=== PATIENT | female | born 1995 | race Two or more races ===

== ENCOUNTER 2020-06-30 06:29 | Emergency (ER) | payer MEDICAID ==
[~2020-06-30] VITALS: Ht 165.1 cm; Wt 83.9 kg
--- NOTE | 2020-06-30 06:43 | NUR ---
PATIENT CAME TO ER BED 16 C/O VAGINAL BLEEDING FOR THE PAST 2x DAYS AFTER FINISHING PERIOD ON 06/25/2020. PATIENT C/O VAGINAL PAIN 9/10 [place]. PATIENT IS AAOX4. NO SOB. BREATHING EVENLY AND UNLABORED ON ROOM AIR.
--- NOTE | 2020-06-30 06:48 | NUR ---
URINE COLLECTED AND SENT TO THE LAB.
--- NOTE | 2020-06-30 06:58 | NUR ---
MANAGER OF PMO AT BEDSIDE FOR BLOOD DRAW
[2020-06-30 07:06] LABS: BASOPHILS # (AUTO) 0.1 /CMM (0.0-0.2); EOSINOPHILS % (AUTO) 1.2 % (0.0-6.0); HEMATOCRIT 37 % (33-45); HEMOGLOBIN 12.4 g/dL (11.5-14.8); MEAN CORPUSCULAR HGB CONC 34 g/dl (31.0-36.0); MEAN CORPUSCULAR VOLUME 85 fL (82-100); MONOCYTES # (AUTO) 0.3 /CMM (0.1-1.30); MONOCYTES % (AUTO) 3.9 % (2.0-12.0); NEUTROPHILS # (AUTO) 4.1 /CMM (1.8-8.9); NEUTROPHILS % (AUTO) 62.9 % (43.0-81.0); PLATELET COUNT (AUTO) 319 /CMM (150-450); RED BLOOD CELL COUNT(AUTO) 4.33 MIL/uL (4.0-5.2); WHITE BLOOD COUNT (AUTO) 6.6 K/uL (4.3-11.0)
[2020-06-30 07:23] LABS: APPEARANCE,URINE SLIGHTLY CLOUDY (CLEAR); COLOR,URINE RED (YELLOW)
[2020-06-30 07:24] LABS: LEUKOCYTE ESTERASE ,URINE 2+ (NEGATIVE); NITRITE, URINE POSITIVE (NEGATIVE); UGLUCOSE NEGATIVE (NEGATIVE)
[2020-06-30 07:25] LABS: BILIRUBIN,URINE LARGE (NEGATIVE); BLOOD, URINE 3+ Ery/uL (NEGATIVE); KETONES,URINE NEGATIVE (NEGATIVE); PROTEIN,URINE 3+ mg/dl (NEGATIVE)
[2020-06-30 07:32] LABS: BACTERIA,URINE Many /HPF (None Seen); RBC,URINE TOO NUMEROUS TO COUN /HPF (0-2); SQUAMOUS EPITHELIAL CELL,UR Moderate /HPF (None Seen); WBC,URINE 81-100 /HPF (0-3)
--- NOTE | 2020-06-30 07:39 | NUR ---
RECEIVED REPORT FROM KRISTEN LAZAR FOR KT. PT IS AAOX3 SERBI[place] SPEAKING ONLY, NOT IN RESPIRATORY DISTRESS, V/S STABLE, KEPT RESTED AND COMFORTABLE. WILL CONTINUE TO MONITOR.
--- NOTE | 2020-06-30 07:40 | NUR ---
TECH AT BEDSIDE FOR US.
[2020-06-30] MEDS ORDERED: KETOROLAC TROMETHAMINE INJ 60 MG/2 ML VIAL IM ONE (08:00)
[2020-06-30] MEDS ORDERED: KETOROLAC TROMETHAMINE INJ 30 MG/ML VIAL ONE (08:02)
--- NOTE | 2020-06-30 08:14 | NUR ---
Patient discharged to home in stable condition. Written and verbal after care instructions given. Patient verbalizes understanding of instruction.
[2020-06-30 08:15] VITALS: BP 118/65
== END 2020-06-30 08:16 | disposition home or self-care (01) ==
LOC: ER 06:37
DX: N93.8 Other specified abnormal uterine and vaginal bleeding (principal); N39.0 Urinary tract infection, site not specified
CPT/HCPCS: 36415; 76856; 81001; 84702; 84703; 85025; 86850; 87086; 96372; 99284; J1885; 81000-TC

== ENCOUNTER 2022-05-16 13:57 | Inpatient (IN) | payer MEDICAID, OTHER ==
[~2022-05-16] VITALS: Ht 162.6 cm; Wt 102.5 kg
[2022-05-16] MEDS ORDERED: ACETAMINOPHEN ES 500 MG TABLET ONE (14:45)
[2022-05-16] MEDS ORDERED: ACETAMINOPHEN ES 500 MG TABLET PO ONE (15:00)
[2022-05-16 15:26] LABS: BASOPHILS % (AUTO) 0.4 % (0.0-2.0); HEMATOCRIT 37 % (33-45); HEMOGLOBIN 12.4 g/dL (11.5-14.8); LYMPHOCYTES # (AUTO) 1.8 K/uL (0.8-4.8); LYMPHOCYTES % (AUTO) 19.4 % (20.0-44.0); MEAN CORPUSCULAR HGB CONC 33 g/dl (31.0-36.0); MEAN CORPUSCULAR VOLUME 79 fL (82-100); MONOCYTES # (AUTO) 0.6 K/uL (0.1-1.30); MONOCYTES % (AUTO) 6.6 % (2.0-12.0); NEUTROPHILS # (AUTO) 6.7 K/uL (1.8-8.9); NEUTROPHILS % (AUTO) 72.6 % (43.0-81.0); PLATELET COUNT (AUTO) 307 K/uL (150-450); RED BLOOD CELL COUNT(AUTO) 4.75 MIL/uL (4.0-5.2); WHITE BLOOD COUNT (AUTO) 9.3 K/uL (4.3-11.0)
[2022-05-16 15:36] LABS: CALCIUM, SERUM 8.6 mg/dL (8.5-10.1); CARBON DIOXIDE 22 mmol/L (21-32); CHLORIDE 103 mmol/L (98-107); CREATININE 0.6 mg/dL (0.6-1.3); GLUCOSE 116 mg/dL (74-106); POTASSIUM 3.7 mmol/L (3.5-5.1); SODIUM SERUM 136 mmol/L (136-145); UREA NITROGEN, BLOOD 6 mg/dL (7-18)
--- NOTE | 2022-05-16 16:25 | NUR ---
Patient came in to the er c/o "[place]iz[place] at home- fainted hit head". On room air, breathing evenly and unlabored. Connected to the monitor and pulse ox. Kept comfortable, will continue to monitor accordingly.
--- NOTE | 2022-05-16 16:30 | NUR ---
MOVE SHEET SUBMITTED.
[2022-05-16] MEDS ORDERED: ASPIRIN 325 MG TABLET ONE (16:57)
[2022-05-16] MEDS ORDERED: ASPIRIN 325 MG TABLET PO ONE (17:00)
--- NOTE | 2022-05-16 22:14 | NUR ---
ADMISSION ORDERD RCVD FROM DR QUIÑONES.
[2022-05-17] MEDS ORDERED: ZOLPIDEM TARTRATE 5 MG TABLET PO PRN (01:00)
[2022-05-17] MEDS ORDERED: ACETAMINOPHEN 325 MG TABLET PO PRN (01:00)
[2022-05-17] MEDS ORDERED: HYDROCODONE/APAP 5/325MG TABLET ONE (01:14)
[2022-05-17] MEDS: HYDROCODONE/APAP 5/325MG TABLET PO PRN ×2 (01:18→22:58)
[2022-05-17 06:01] LABS: BASOPHILS % (AUTO) 0.7 % (0.0-2.0); EOSINOPHILS % (AUTO) 2.5 % (0.0-6.0); HEMATOCRIT 35 % (33-45); HEMOGLOBIN 11.7 g/dL (11.5-14.8); LYMPHOCYTES # (AUTO) 2.4 K/uL (0.8-4.8); LYMPHOCYTES % (AUTO) 36.3 % (20.0-44.0); MEAN CORPUSCULAR HGB CONC 33 g/dl (31.0-36.0); MEAN CORPUSCULAR VOLUME 79 fL (82-100); MONOCYTES # (AUTO) 0.4 K/uL (0.1-1.30); MONOCYTES % (AUTO) 6.1 % (2.0-12.0); NEUTROPHILS # (AUTO) 3.6 K/uL (1.8-8.9); NEUTROPHILS % (AUTO) 54.4 % (43.0-81.0); PLATELET COUNT (AUTO) 291 K/uL (150-450); RED BLOOD CELL COUNT(AUTO) 4.51 MIL/uL (4.0-5.2); WHITE BLOOD COUNT (AUTO) 6.6 K/uL (4.3-11.0)
[2022-05-17 06:38] LABS: CREATININE 0.6 mg/dL (0.6-1.3); POTASSIUM 3.6 mmol/L (3.5-5.1)
[2022-05-17 06:49] LABS: THYROID STIMULATING HORMONE 4.002 uIU/mL (0.358-3.74)
--- NOTE | 2022-05-17 07:38 | NUR ---
GOING TO 307.2
--- NOTE | 2022-05-17 08:24 | NUR ---
REPORT GIVEN TO SHELLEY PETERSON. PT AWAITING TRANSFER TO FLOOR.
--- NOTE | 2022-05-17 10:15 | NUR ---
LIGIA CONTRERAS AT BEDSIDE
[2022-05-17 11:40] VITALS: BP 135/80
--- NOTE | 2022-05-17 12:00 | NUR ---
RN ADMITTING NOTES PATIENT ARRIVED TO UNIT @1105 ACCOMPANIED BY TWO ER STAFF VIA [facility]. A/Ox4 ARMENIAN SPEAKING, ABLE TO AMBULATE TO BED FROM [facility]. V/S TAKEN, STABLE, ON ROOM AIR NO S/S OF RESPIRATORY DISTRESS. NO DIZZINESS COMPLAINED. IV ACCESS L WRIST #20 G SL, INTACT AND PATENT. TELE MONITOR ATTACHED, SHOWING SINUS TELE 82 HR AT THIS TIME. FULL BODY ASSESSMENT COMPLETED: CARDIAC HEART SOUNDS PRESENT AND WNL, RESPIRATORY LUNG SOUNDS CLEAR, GI/ CONTINENT NO SIGNS OF ABDOMINAL DISTENSION, SKIN IS INTACT. ORIENTED TO ROOM AND UNIT. SAFETY MEASURES IN PLACE: BED IN LOWEST POSITION AND LOCKED, CALL LIGHT WITHIN REACH, SIDE RAILS UP x2, HOB ELEVATED. WILL CONTINUE TO MONITOR.
[2022-05-17 16:00] VITALS: BP 115/58
--- NOTE | 2022-05-17 18:47 | NUR ---
FRONT OFFICE HELP CLOSING NOTES PATIENT AWAKE IN BED, STABLE ON ROOM AIR NO S/S OF RESPIRATORY DISTRESS OR DISCOMFORT. PATIENT IS A/O x4, CHINESE SPEAKING. IV ACCESS L WRIST #20G SL. INTACT AND PATENT. NO S/S OF CARDIAC DISTRESS OR DISCOMFORT. SKIN IS INTACT. AMBULATORY AND HAS BRP. ALL PRESCRIBED MEDICATION ADMINISTERED. SAFETY MEASURES MAINTAINED: BED IN LOWEST POSITION AND LOCKED, SIDE RAILS UP x2, CALL LIGHT WITHIN REACH, BED ALARM ON, SITTER IN ROOM WITH PATIENT. WILL ENDORSE TO NEXT SHIFT ANY KT.
--- NOTE | 2022-05-17 19:22 | NUR ---
RN OPENING NOTE PATIENT AWAKE IN BED. A/OX4. NO S/S OF DISTRESS, BREATHING W/O DIFFICULTY ON ROOM AIR. L-HAND #20 SL INTACT AND PATENT. TELE MONITOR REVEALS SR70. SAFETY MEASURES IN PLACE: BED AT LOCKED & AT LOWEST POSITION, RAILS UP X2, CALL OLSEN WITHIN REACH. WILL CONTINUE TO MONITOR PATIENT.
[2022-05-17 20:48] VITALS: BP 118/68
[2022-05-18 00:37] VITALS: BP 116/56
[2022-05-18 04:49] VITALS: BP 112/65
--- NOTE | 2022-05-18 06:46 | NUR ---
RN CLOSING NOTE PATIENT ASLEEP IN BED. A/OX4. NO S/S OF DISTRESS, BREATHING W/O DIFFICULTY ON ROOM AIR. L-HAND #20 SL INTACT AND PATENT. TELE MONITOR REVEALS SR63. SAFETY MEASURES IN PLACE: BED LOCKED AND IN AT LOWEST POSITION, RAILS UP X2, CALL OLSEN WITHIN REACH. WILL ENDORSE TO NEXT SHIFT FOR KT.
--- NOTE | 2022-05-18 07:12 | NUR ---
RN OPENING NOTE RECEIVED PATIENT AWAKE IN BED. A/OX4. NO S/S OF RESPIRATORY DISTRESS, BREATHING W/O DIFFICULTY ON ROOM AIR. L-HAND #20 SL INTACT AND PATENT. TELE MONITOR REVEALS SR 72. NO S/S OF CARDIAC DISTRESS NOTED AT THIS TIME. IV INSERTED ON R AC #18G FOR CT ANGIO OF THE HEART. INTACT AND PATENT. SAFETY MEASURES IN PLACE: BED AT LOCKED & AT LOWEST POSITION, RAILS UP X2, CALL LIGHT WITHIN REACH. WILL CONTINUE TO MONITOR PATIENT.
[2022-05-18 08:00] VITALS: BP 115/56
[2022-05-18] MEDS ORDERED: IOHEXOL-350 100 ML VIAL IV ONE (08:31)
--- NOTE | 2022-05-18 08:41 | NUR ---
RN NOTES PATIENT LEFT UNIT @[address] ANGIO OF THE HEART ACCOMPANIED BY MILLING MACHINE OPERATOR. IN STABLE CONDITION NO S/S OF CARDIAC OR RESPIRATORY DISTRESS.
[2022-05-18] MEDS ORDERED: NITROGLYCERIN 0.4 MG/TAB BOTTLE SL PRN (09:00)
[2022-05-18] MEDS ORDERED: METOPROLOL TARTRATE INJ 5 MG/5 ML AMPUL IVP PRN (09:00)
[2022-05-18] MEDS ORDERED: METOPROLOL TARTRATE INJ 5 MG/5 ML AMPUL ONE (09:02)
[2022-05-18 09:09] VITALS: BP 111/58
[2022-05-18] MEDS ORDERED: NITROGLYCERIN 0.4 MG/TAB BOTTLE ONE (09:13)
--- NOTE | 2022-05-18 09:33 | NUR ---
RN NOTES PATIENT JUST RETURNED FORM CT SCAN TO UNIT, NO S/S OF DISTRESS OR DISCOMFORT NOTED.
--- NOTE | 2022-05-18 12:30 | NUR ---
RESEARCH PSYCHOLOGIST NOTES PATIENT DISCHARGED TO HOME, A/Ox4. CHINESE SPEAKING. STABLE ON ROOM AIR, NO S/S OF RESPIRATORY DISTRESS. NO S/S OR C/O OF CARDIAC DISTRESS OR DIZZINESS. ALL DISCHARGE INTRUCTIONS AND HEALTH EDUCATION EXPLAINED AND GIVEN TO PATIENT, PATIENT VERBALIZED UNDERSTANDING. IV ACCESS REMOVED: R AC #18G AND L WRIST #20G, PRESSURE DRESSINGS IN PLACE, NO S/S OF BLEEDING NOTED. ID BANDS REMOVED. DISCHARGE INSTRUCTIONS AND BELONGINGS LISTS SIGNED AND COPIES FILED. PATIENT LEFT UNIT ACCOMPANIED BY RN, SHELLEY @2240. PATIENT ABLE TO AMBULATE WITHOUT ANY DIFFICULTIES. PATIENT WENT HOME IN A PRIVATE CAR WITH , WILIAN. CHARGE NURSE AND MD AWARE OF DISCHARGE.
== END 2022-05-18 13:24 | disposition home or self-care (01) | DRG 48 ==
LOC: ER 14:02 → TRANSITION 05-17 00:28 → TELE1 05-17 07:48 → TELE 05-17 07:55
PROVIDERS: ADMIT Internal Medicine; ATTEND Internal Medicine
DX: G90.8 Other disorders of autonomic nervous system (principal); I21.4 Non-ST elevation (NSTEMI) myocardial infarction; I95.9 Hypotension, unspecified; E66.01 Morbid (severe) obesity due to excess calories; G47.33 Obstructive sleep apnea (adult) (pediatric); Z83.3 Family history of diabetes mellitus; E78.5 Hyperlipidemia, unspecified
CPT/HCPCS: 36415; 70450-TC; 71045-TC; 75574; 80048-TC; 80061-TC; 82550-TC; 84443-TC; 84484-TC; 84703-TC; 85025-TC; 87081-TC; 93307-TC; 93880-TC; C9803; G0378; J3490; Q9967